=== PATIENT | female | born 1990 | race African-American/Black ===

== ENCOUNTER 2018-03-14 12:51 | Emergency (ER) | payer MEDICAID ==
[~2018-03-14] VITALS: Ht 160 cm; Wt 81.6 kg
[2018-03-14 13:00] VITALS: BP 139/90
[2018-03-14] MEDS ORDERED: Dexamethasone 4mg/ml vial IM ONE (13:15)
[2018-03-14] MEDS ORDERED: Lidocaine 2% Visc 15ml soln ORAL ONE (13:15)
[2018-03-14] MEDS ORDERED: Acetaminophen 500mg (ES) tab ORAL ONE (13:15)
[2018-03-14] MEDS ORDERED: TYLENOL EXTRA500 MG ORAL (13:20)
--- NOTE | 2018-03-14 13:20 | Emergency Room Report ---
History of Present Illness General Chief Complaint: Sore Throat Source: Patient Present Illness HPI 27-year-old female patient presents ER complaining of sore throat for the past 4 days. Reports been taking ibuprofen for relief of symptoms. Reports been coughing during this time. Denies chest pain, shortness of breath, dominant pain. Denies calf pain. Reports no recent surgeries or periods of immobilization.Denies taking any control medications, denies smoking. Denies fever during this time. Allergies: Coded Allergies: No Known Allergies (Unverified , 03/14/18) Patient History Past Medical History: see triage record Last Menstrual Period: 7-4 Now: No Reviewed Nursing Documentation: PMH: Agreed; PSxH: Agreed Nursing Documentation-PMH Past Medical History: No Stated History Review of Systems All Other Systems: negative except mentioned in HPI Physical Exam Vital Signs Date Time Temp Pulse Resp B/P (MAP) Pulse Ox O2 Delivery O2 Flow Rate FiO2 03/14/18 12:54 98.9 65 18 139/90 98 Room Air 99.0 Sp02 EP Interpretation: reviewed, normal General Appearance: well appearing, no apparent distress, alert, GCS 15, non- toxic Head: normocephalic, atraumatic Eyes: bilateral eye normal inspection, bilateral eye PERRL ENT: hearing grossly normal, normal pharynx, no angioedema, normal voice, TMs + canals normal, uvula midline, moist mucus membranes, tonsillar swelling, pharyngeal erythema, other - no tonsillar exudates, no uvular deviation, no stridor, no tripoding Neck: full range of motion Respiratory: lungs clear, normal breath sounds, no rhonchi, no respiratory distress, no accessory muscle use, no wheezing, speaking full sentences, other - no stridor Cardiovascular #1: regular rate, rhythm, no edema Neurologic: alert, oriented x3, responsive, motor strength/tone normal, sensory intact Psychiatric: mood/affect normal Skin: no rash Lymphatic: no adenopathy Medical Decision Making PA Attestation Dr. Pascual is my supervising Physician whom patient management has been discussed with. Diagnostic Impression: Primary Impression: Sore throat ER Course Pt presents to ED c/o sore throat DDX considered but are not limited to pharyngitis, laryngitis, URI, peritonsillar abscess, tonsillitis. Low suspicion for peritonsillar abscess, no neck stiffness, no hot potato voice , no stridor. low suspicion for PE per well's criteria. Does not require imaging at this time. VITAL SIGNS are WNL, patient is afebrile. ORDERS: -Dexamethasone -Viscous Lidocaine ER COURSE: pharyngeal erythema and tonsillar swelling noted on physical exam, no tonsillar exudates or lymphadenopathy, history of cough, no fever, low suspicion for strep pharyngitis or bacterial infection. Likely viral cause of symptoms. Provide Viscous Lidocaine and shot of Decadron in the ER for patient for relief of symptoms. Advised patient has saltwater gargles and Tylenol for relief of symptoms. Return to ER for new or worsening of symptoms including but not limited to chest pain, shortness of breath, intractable vomiting, fever. patient reports understanding and agreement to treatment plan. Follow-up with primary care provider for continued treatment and referral as needed. Instructed patient to use over the counter Robitussin DM for cough symptoms. DISCHARGE: Salt water gargles Rx provided for Tylenol for pain and fever symptoms At this time pt is stable for d/c to home. Patient is resting comfortably, in no acute distress, nontoxic appearing, talking without difficulty. Will provide with patient care instructions and any necessary prescriptions. Patient to take medication as instructed. Care plan and follow-up instructions provided. Patient questions asked and answered. Patient instructed to follow-up with primary care provider in 3 - 5 days. ER precautions given. Patient instructed to return to ER immediately for any new or worsening of symptoms including but not limited to intractable vomiting, difficulty breathing, inability to eat. - Please note that this Emergency Department Report was dictated using Naf[employer] Systemsagricultural engineer technology software, occasionally this can lead to erroneous entry secondary to interpretation by the dictation equipment. Last Vital Signs Date Time Temp Pulse Resp B/P (MAP) Pulse Ox O2 Delivery O2 Flow Rate FiO2 03/14/18 13:00 99.0 18 139/90 98 Room Air 99.0 03/14/18 12:54 65 Disposition: HOME, SELF-CARE Condition: Stable Scripts Acetaminophen* (TYLENOL EXTRA STRENGTH*) 500 Mg Tablet 500 MG ORAL Q8H PRN for Prn Headache/Temp > 101, #30 TAB 0 Refills Prov: Ford Barron 03/14/18 Patient Instructions: Sore Throat Additional Instructions: Followup with primary care provider in 3 -5 days. Salt water gargles Rx provided for Tylenol for pain and fever symptoms Drink plenty of water. Take medications as directed. Patient questions asked and answered. ER precautions given, patient instructed to return to ER immediately for any new or worsening of symptoms including but not limited to intractable vomiting, difficulty breathing, inability to eat. Ford Barron Mar 14, 2018 13:20
[2018-03-14 13:34] VITALS: BP 139/90
== END 2018-03-14 13:34 | disposition home or self-care (01) ==
LOC: EMR 13:15
DX: J02.9 Acute pharyngitis, unspecified (principal)
CPT/HCPCS: 96372; 99283; J1100

== ENCOUNTER 2018-03-16 19:35 | Emergency (ER) | payer MEDICAID ==
[~2018-03-16] VITALS: Ht 160 cm; Wt 81.6 kg
[~2018-03-16 19:35] MED LIST: TYLENOL EXTRA500 MG ORAL
[2018-03-16] MEDS ORDERED: IRON240 M1 PO (19:46)
[2018-03-16 19:50] VITALS: BP 125/87
[2018-03-16] MEDS ORDERED: Lidocaine 2% Visc 15ml soln ORAL ONE (20:00)
--- NOTE | 2018-03-16 20:10 | Emergency Room Report ---
History of Present Illness General Chief Complaint: Upper Respiratory Illness Source: Patient Present Illness HPI 27-year-old female patient presents ER complaining of sore throat and cough for the past several days. Patient was previously seen here at [facility] [place] ago for similar symptoms. Reports complaining of worsening of cough symptoms, states cough is worse at night. Denies fever, vomiting, chest pain, shortness of breath. Denies history of asthma. Denies vomiting. Denies other acute symptoms at this time. Reports has been taking Mucinex DM with mild relief of symptoms. Allergies: Coded Allergies: No Known Allergies (Unverified , 03/14/18) Patient History Past Medical History: see triage record Last Menstrual Period: 02/24/18 Now: No Reviewed Nursing Documentation: PMH: Agreed; PSxH: Agreed Review of Systems All Other Systems: negative except mentioned in HPI Physical Exam Vital Signs Date Time Temp Pulse Resp B/P (MAP) Pulse Ox O2 Delivery O2 Flow Rate FiO2 03/16/18 19:42 98.8 69 18 125/87 95 Room Air 98.8 Sp02 EP Interpretation: reviewed, normal General Appearance: well appearing, no apparent distress, alert, GCS 15, non- toxic Head: normocephalic, atraumatic Eyes: bilateral eye normal inspection, bilateral eye PERRL ENT: hearing grossly normal, normal pharynx, no angioedema, normal voice, TMs + canals normal, uvula midline, moist mucus membranes, other - uvula midline, no tonsillar erythema or exudates Neck: full range of motion, no bony tend Respiratory: lungs clear, normal breath sounds, no rhonchi, no respiratory distress, no accessory muscle use, no wheezing, speaking full sentences, other - no stridor Cardiovascular #1: regular rate, rhythm, no edema Musculoskeletal: back normal, digits/nails normal, gait/station normal, normal range of motion, non-tender Neurologic: alert, oriented x3, responsive, motor strength/tone normal, sensory intact Psychiatric: mood/affect normal Skin: no rash Lymphatic: no adenopathy Medical Decision Making PA Attestation Dr. Zaragoza is my supervising Physician whom patient management has been discussed with. Diagnostic Impression: Primary Impression: Sore throat Additional Impression: Cough ER Course Pt presents to ED c/o sore throat and cough. DDX considered but are not limited to pharyngitis, laryngitis, URI, peritonsillar abscess, tonsillitis, retropharyngeal abscess. Low suspicion for peritonsillar abscess, no neck stiffness, no hot potato voice , no stridor. Does not require imaging at this time. VITAL SIGNS are WNL, patient is afebrile. ER COURSE: ordered promethazine cough medication and viscous lidocaine and Tylenol for patient. CXR Negative for acute disease per the preliminary reading. Soft tissue X-ray negative for acute disease per the preliminary reading. patient denies trismus, denies neck pain, no stridor or drooling, nontoxic appearing, afebrile, low suspicion for retropharyngeal abscess. Patient reports feeling better following administration of medication. reports pain symptoms improved while in the ER. Due to duration of symptoms, will provide patient with antibiotics at discharge. Instructed patient to follow-up with primary care provider and discuss further referral as needed at that time. patient seen and evaluated by Dr. Zaragoza, agrees with assessment and treatment plan. DISCHARGE: Rx provided for Azithromycin Rx provided for Tylenol Rx provided for promethazine cough medication Salt water gargles Tylenol for pain and fever symptoms At this time pt is stable for d/c to home. Patient is resting comfortably, in no acute distress, nontoxic appearing, talking without difficulty. Will provide with patient care instructions and any necessary prescriptions. Patient to take medication as instructed. Care plan and follow-up instructions provided. Patient questions asked and answered. Patient instructed to follow-up with primary care provider in 3 - 5 days. ER precautions given. Patient instructed to return to ER immediately for any new or worsening of symptoms including but not limited to intractable vomiting, difficulty breathing, inability to eat. - Please note that this Emergency Department Report was dictated using [employer] camera operator technology software, occasionally this can lead to erroneous entry secondary to interpretation by the dictation equipment. Chest X-Ray Diagnostic Results Chest X-Ray Diagnostic Results : Chest X-Ray Ordered: Yes # of Views/Limited/Complete: 1 View Indication: Chest Pain EP Interpretation: Yes PA Xray: Interpretation reviewed, by supervising MD, and agrees with findings. Interpretation: no consolidation, no effusion, no pneumothorax, no acute cardiopulmonary disease Impression: No acute disease TAYLOR GuyibNeida Barron PA-C Other X-Ray Diagnostic Results Other X-Ray Diagnostic Results : X-Ray ordered: soft tissue cervical # of Views/Limited Vs Complete: 2 View Indication: Pain EP Interpretation: Yes PA Xray: Interpretation reviewed, by supervising MD, and agrees with findings. Interpretation: no dislocation, no soft tissue swelling, no fractures, nonspecific bowel gas Impression: No acute disease TAYLOR Scribaguilar Text Bud Barron PA-C Last Vital Signs Date Time Temp Pulse Resp B/P (MAP) Pulse Ox O2 Delivery O2 Flow Rate FiO2 03/16/18 19:42 98.8 69 18 125/87 95 Room Air 98.8 Status: improved Disposition: HOME, SELF-CARE Condition: Stable Scripts Azithromycin* (ZITHROMAX*) 250 Mg Tablet 250 MG ORAL DAILY, #6 TAB 0 Refills Take two tables once daily for 1 day, then one tablet once daily for 4 days. Prov: Ford Barron 03/16/18 Acetaminophen* (TYLENOL EXTRA STRENGTH*) 500 Mg Tablet 500 MG ORAL Q8H PRN for Prn Headache/Temp > 101, #30 TAB 0 Refills Prov: Ford Barron 03/16/18 Promethazine Hcl (PROMETHAZINE HCL*) 6.25 Mg/5 Ml Syrup 5 ML ORAL Q8H, #120 ML 0 Refills Prov: Ford Barron 03/16/18 Patient Instructions: Cough, Adult, [id number], Sore Throat, [id number] Additional Instructions: Followup with primary care provider in 2-3 days. Discuss need for abx at that time. Do not begin taking abx until followup and consultation with PCP. Salt water gargles Rx provided for Tylenol for pain and fever symptoms Drink plenty of water. Take medications as directed. Patient questions asked and answered. ER precautions given, patient instructed to return to ER immediately for any new or worsening of symptoms including but not limited to intractable vomiting, difficulty breathing, inability to eat. Ford Barron Mar 16, 2018 20:09
[2018-03-16] MEDS ORDERED: Promethazine Plain 6.25mg/5ml ORAL ONE (20:15)
[2018-03-16] MEDS ORDERED: TYLENOL EXTRA500 MG ORAL (20:48)
[2018-03-16] MEDS ORDERED: AMOXICILLIN500 MG ORAL (20:48)
[2018-03-16] MEDS ORDERED: PROMETHAZI6.25 MG/1 ORAL (20:48)
[2018-03-16] MEDS ORDERED: ZITHROMAX250 MG ORAL (21:17)
[2018-03-16 21:24] VITALS: BP 0/0
--- NOTE | 2018-03-17 11:33 | Diagnostic Imaging Report ---
Indication: Sore throat Technique: 2 views of the neck with soft tissue technique Comparison: none Findings: There is slight reversal of the normal cervical lordosis, otherwise normal bony alignment. No prevertebral soft tissue swelling. No epiglottic swelling, hypopharyngeal distention, or glottic narrowing. No radiopaque foreign body demonstrated Impression: Negative
--- NOTE | 2018-03-17 11:34 | Diagnostic Imaging Report ---
Indication: Cough Technique: One view of the chest Comparison: none Findings: Lungs and pleural spaces are clear. Heart size is normal Impression: No acute process
== END 2018-03-16 21:24 | disposition home or self-care (01) ==
LOC: EMR 20:14
DX: J02.9 Acute pharyngitis, unspecified (principal); R05 Cough
CPT/HCPCS: 70360; 71045; 99284

== ENCOUNTER 2018-05-23 12:59 | Emergency (ER) | payer MEDICAID ==
[~2018-05-23] VITALS: Ht 160 cm; Wt 81.6 kg
[~2018-05-23 12:59] MED LIST changes: +AMOXICILLIN500 MG ORAL; +IRON240 M1 PO; +PROMETHAZI6.25 MG/1 ORAL; +ZITHROMAX250 MG ORAL
[2018-05-23 13:15] VITALS: BP 127/85
[2018-05-23] MEDS ORDERED: Metoclopramide 10mg/2ml Inj IVP ONE (13:30)
[2018-05-23] MEDS ORDERED: Ketorolac 30mg Inj IM ONE (13:30)
--- NOTE | 2018-05-23 13:31 | Emergency Room Report ---
History of Present Illness General Chief Complaint: Headache Source: Patient Present Illness HPI 27-year-old female patient presents ER complaining of headache for the past week. Reports "I think I have a migraine". Reports left sided headache that is sometimes on both sides of her head. Reports history of similar symptoms in the past. Denies sudden onset of worst headache of life. Reports symptoms are intermittent. Reports has not been seen by her care provider. Denies neck pain or fever. Denies loss of vision or photophobia or phonophobia. Denies fever, chest pain, cough, shortness of breath, vomiting, sore throat. Denies ear pain. denies nasal congestion, runny nose, recent illness. Denies dysuria, hematuria. Denies injury or trauma. Denies vertigo or syncope. Allergies: Coded Allergies: No Known Allergies (Unverified , 03/14/18) Patient History Past Medical History: see triage record Last Menstrual Period: 05/23/18 Now: No Reviewed Nursing Documentation: PMH: Agreed; PSxH: Agreed Nursing Documentation-PMH Past Medical History: No History, Except For Review of Systems All Other Systems: negative except mentioned in HPI Physical Exam Vital Signs Date Time Temp Pulse Resp B/P (MAP) Pulse Ox O2 Delivery O2 Flow Rate FiO2 05/23/18 13:15 209.5 78 18 127/85 96 Room Air 209.5 Sp02 EP Interpretation: reviewed, normal General Appearance: well appearing, no apparent distress, alert, GCS 15, non- toxic Head: normocephalic, atraumatic Eyes: bilateral eye normal inspection, bilateral eye PERRL ENT: hearing grossly normal, normal pharynx, no angioedema, normal voice, TMs + canals normal, uvula midline, moist mucus membranes Neck: full range of motion Respiratory: lungs clear, normal breath sounds, no rhonchi, no respiratory distress, no accessory muscle use, no wheezing, speaking full sentences Cardiovascular #1: regular rate, rhythm, no edema Musculoskeletal: back normal, digits/nails normal, gait/station normal, normal range of motion, non-tender Neurologic: alert, oriented x3, responsive, hand booked folder and stitcher III-XII nml as tested, motor strength/tone normal, sensory intact, cerebellar normal, normal gait, speech normal, other - negative kernig, negative brudzinski Psychiatric: mood/affect normal Skin: no rash Lymphatic: no adenopathy Medical Decision Making PA Attestation Dr. Barclay is my supervising Physician whom patient management has been discussed with. Diagnostic Impression: Primary Impression: Headache ER Course Pt presents to ED c/o headache. DDX considered but are not limited to migraine, cluster VALLES, tension VALLES, meningitis, ICH, meningitis. negative kernig, negative brudzinski, afebrile, patient nontoxic appearing, low suspicion for meningitis. no focal neuro deficits, cranial nerves intact as tested, patient behaving normally in no acute distress, laughing and smiling, hx of similar symptoms in the past, low suspicion for ICH, does not require CT head at this time. VITAL SIGNS are WNL, patient is afebrile ER COURSE - Metoclopramide 10mg IM for pain, N/V; possible SE: tics, spasm; CI seizures, HTN - Benadryl 25mg IM ; possible SE: drowsiness - Toradol PE benign. Hx consistent with hx of migraine headaches. F/u PCP to discuss treatment and referral to neurology as needed. Advised on avoiding excessive screen time, resting in quiet room with lights off. ER precautions given. Patient reports pain improved. Patient is AOx3, neurologically intact, nontoxic appearing, and ambulatory. DISCHARGE: -Rx provided Excedrin At this time pt is stable for d/c to home. Patient is resting comfortably, in no acute distress, nontoxic appearing, talking and smiling. Will provide with patient care instructions and any necessary prescriptions. Patient to take medication as instructed. Care plan and follow-up instructions provided. Patient questions asked and answered. Patient instructed to follow-up with primary care provider in the next 3 days and discuss further referral with PCP to neurologist. ER precautions given. Patient instructed to return to ER immediately for any new or worsening of symptoms including but not limited to fever, neck stiffness , vision changes, and neurological symptoms. - Please note that this Emergency Department Report was dictated using [email or web address] checker technology software, occasionally this can lead to erroneous entry secondary to interpretation by the dictation equipment. Last Vital Signs Date Time Temp Pulse Resp B/P (MAP) Pulse Ox O2 Delivery O2 Flow Rate FiO2 05/23/18 13:15 98.6 73 18 127/85 96 Room Air 98.6 Disposition: HOME, SELF-CARE Condition: Stable Scripts Aspirin/Acetaminophen/Caffeine (EXCEDRIN MIGRAINE CAPLET) 1 Each Tablet 1 EACH PO BID, #30 TAB Prov: Ford Barron 05/23/18 Patient Instructions: Migraine Headache, Tension Headache, Cluster Headache Additional Instructions: Followup with primary care provider in 3 -5 days. Discuss referral to neurology as needed. Take medications as directed. Patient questions asked and answered. ER precautions given, patient instructed to return to ER immediately for any new or worsening of symptoms. Ford Barron May 23, 2018 13:31
[2018-05-23] MEDS ORDERED: EXCEDRIN MIGRA1 EAC1 PO (13:38)
[2018-05-23 13:46] VITALS: BP 127/85
== END 2018-05-23 13:47 | disposition home or self-care (01) ==
LOC: EMR 13:25
DX: R51 Headache (principal)
CPT/HCPCS: 96372; 99283; J1885; J2765